=== PATIENT | male | born 1995 | race Caucasian/White ===

== ENCOUNTER 2023-02-24 16:49 | Emergency (ER) | payer OTHER ==
[2023-02-24 17:02] VITALS: BP 130/97
[2023-02-24 17:12] LABS: BASOPHILS % (AUTO) 0.3 %; HCT - HEMATOCRIT 45.3 % (42.0-52.0); HGB - HEMOGLOBIN 14.7 g/dL (14.0-18.0); LYMPHOCYTES # (AUTO) 1.2 10^3/uL (1.5-3.5); LYMPHOCYTES % (AUTO) 10.2 %; MEAN CORPUSCULAR HEMOGLOBIN 26.6 pg (27.0-31.0); MEAN CORPUSCULAR HGB CONC 32.5 g/dL (32.0-36.0); MEAN CORPUSCULAR VOLUME 81.9 fL (80.0-94.0); MEAN PLATELET VOLUME 8.8 fL (7.4-11.4); MONOCYTES # (AUTO) 0.7 10^3/uL (0.0-1.0); MONOCYTES % (AUTO) 6.5 %; NEUTROPHILS # (AUTO) 9.4 10^3/uL (1.5-6.6); NEUTROPHILS % (AUTO) 82.7 %; PLT - PLATELET COUNT 229 10^3/uL (130-450); RED BLOOD COUNT 5.53 10^6/uL (4.70-6.10); WHITE BLOOD COUNT 11.3 x10^3/uL (4.8-10.8)
[2023-02-24 17:26] LABS: ALBUMIN 4.4 g/dL (3.2-5.5); ALBUMIN/GLOBULIN RATIO 1.3 (1.0-2.2); BILIRUBIN,TOTAL 0.9 mg/dL (0.2-1.0); CALCIUM 9.5 mg/dL (8.5-10.3); POTASSIUM 3.7 mmol/L (3.5-5.0); TOTAL PROTEIN 7.9 g/dL (6.7-8.2)
[2023-02-24] MEDS ORDERED: SODIUM CHLORIDE 0.9% 1,000 ML IV STA (17:45)
[2023-02-24] MEDS ORDERED: HYDROmorphone 1 MG/ML CARPUJECT IVP STA (17:45)
[2023-02-24] MEDS ORDERED: KETOROLAC 15 MG/ML VIAL IVP STA (17:45)
--- NOTE | 2023-02-24 17:46 | ED Physician Documentation ---
PD HPI ABD PAIN - Stated complaint Stated Complaint: MADRIGAL/DIZZY/CRAMPING - Chief complaint Chief Complaint: Abd Pain - History obtained from History obtained from: Patient - Additional information Additional information: 27-year-old gentleman with history of remote appendectomy has been sick for 3 days with abdominal cramping but last night started develop profuse diarrhea and a fever of 103. No associated nausea. No sick contacts or recent travel. PD PAST MEDICAL HISTORY - Allergies Allergies/Adverse Reactions: Allergies Allergy/AdvReac Type Severity Reaction Status Date / Time No Known Drug Allergies Allergy Verified 02/24/23 17:02 PD ED PE NORMAL - Vitals Vital signs reviewed: Yes - General General: Alert and oriented X 3, No acute distress - Cardiac Cardiac: RRR, No murmur - Abdomen Abdomen: Normal bowel sounds, Soft, Non tender - Back Back: No spinal TTP - Derm Derm: No rash - Neuro Neuro: Alert and oriented X 3, Normal speech Results - Vitals Vitals: Vital Signs - 24 hr 02/24/23 02/24/23 16:58 18:07 Temperature 36.9 C Heart Rate 111 H 108 H Respiratory 16 Rate Blood Pressure 130/97 H O2 Saturation 97 95 Oxygen O2 Source Room air - Labs Labs: Laboratory Tests 02/24/23 02/24/23 02/24/23 17:08 17:08 17:55 WBC 11.3 H RBC 5.53 Hgb 14.7 Hct 45.3 MCV 81.9 MCH 26.6 L MCHC 32.5 RDW 13.0 Plt Count 229 MPV 8.8 Neut # (Auto) 9.4 H Lymph # (Auto) 1.2 L [place] # (Auto) 0.7 Eos # (Auto) 0.0 Baso # (Auto) 0.0 Absolute Nucleated RBC 0.00 Nucleated RBC % 0.0 Sodium 136 Potassium 3.7 Chloride 101 Carbon Dioxide 26 Anion Gap 9.0 BUN 12 Creatinine 1.0 Estimated GFR (MDRD) 89 Glucose 102 H Calcium 9.5 Total Bilirubin 0.9 AST 18 ALT 28 Alkaline Phosphatase 58 Total Protein 7.9 Albumin 4.4 Globulin 3.5 Albumin/Globulin Ratio 1.3 Lipase 31 Urine Color YELLOW Urine Clarity CLEAR Urine pH 6.0 Ur Specific [place] >=1.030 H Urine Protein TRACE Urine Glucose (UA) NEGATIVE Urine Ketones 15 H Urine Occult Blood NEGATIVE Urine Nitrite NEGATIVE Urine Bilirubin NEGATIVE Urine Urobilinogen 0.2 (NORMAL) Ur Leukocyte Esterase NEGATIVE Ur Microscopic Review NOT INDICATED Urine Culture Comments NOT INDICATED PD Medical Decision Making - ED course ED course: 27-year-old gentleman with what sounds like a colitis. CBC reviewed notable for mild elevation white count. CMP basically normal. Urine normal with exception of concentrated with mild ketonuria. Signed out to overnight ED physician at 7 PM shift change pending CT and stool results.
[2023-02-24 18:13] LABS: BILIRUBIN,URINE NEGATIVE (NEGATIVE); GLUCOSE, URINE (UA) NEGATIVE (NEGATIVE); KETONES,URINE (UA) 15 mg/dL (NEGATIVE); LEUKOCYTE ESTERASE, URINE NEGATIVE (NEGATIVE); NITRITE,URINE NEGATIVE (NEGATIVE); OCCULT BLOOD,URINE NEGATIVE (NEGATIVE); PROTEIN,URINE TRACE mg/dL (NEGATIVE); UROBILINOGEN,URINE 0.2 (NORMAL) E.U./dL (NORMAL)
[2023-02-24 18:26] LABS: CLARITY,URINE CLEAR (CLEAR)
[2023-02-24] MEDS ORDERED: iohexoL-300 100 ML VIAL ONE (18:58)
--- NOTE | 2023-02-24 19:36 | CT Report ---
PROCEDURE: ABDOMEN/PELVIS W INDICATIONS: iv only, abd pain CONTRAST: : 100mL Omni 300 TECHNIQUE: After the administration of IV contrast, 5 mm thick sections acquired from the diaphragms to the symp hysis. 5 mm thick coronal and sagittal reformats were acquired. For radiation dose reduction, the f ollowing was used: automated exposure control, adjustment of mA and/or kV according to patient size. COMPARISON: FINDINGS: Image quality: Excellent. Lung bases and heart: Unremarkable. Liver: Mild steatosis. Gallbladder and biliary tree: Unremarkable. Spleen: Unremarkable. Pancreas: Unremarkable. Adrenals: Unremarkable. Kidneys: No obstruction. Simple right renal cyst is present. Bowel and peritoneum: No bowel distension. Bowel loops are nonobstructive. There is thickening of the descending and transverse colon into lesser degree the descending and sigmoid colon. Minimal surroun ding pericolonic inflammatory changes are present. There are right lower quadrant subcentimeter lymph nodes present. Lymph nodes: No central or retroperitoneal adenopathy. Vessels: Unremarkable. PELVIS Reproductive organs: Unremarkable. Bladder and ureters: Unremarkable. Lymph nodes: Unremarkable. Bones: No aggressive osseous abnormality. Other: None IMPRESSION: Diffuse thickening with inflammatory change within the colon most severe within the right and transve rse colon. Overall appearance is most suggestive of colitis secondary to infection or inflammatory ch mazin. Given patient age and lack of atherosclerotic disease, ischemic colitis is felt to be less like ly. Reviewed by: Angelina Driscoll MD on 02/24/2023 7:34 PM PDT Approved by: Angelina Driscoll MD on 02/24/2023 7:34 PM PDT Station ID: [id number]
[2023-02-24] MEDS ORDERED: iohexoL-300 100 ML VIAL IVP ONE (19:46)
--- NOTE | 2023-02-24 19:47 | ED Physician Documentation ---
ED Addendum - Addendum Addendum: 02/24/23 19:55 Patient signed out to me by Dr. Salguero at shift change pending results of CT scan of the abdomen and pelvis. His CT results are as follows. IMPRESSION: Diffuse thickening with inflammatory change within the colon most severe within the right and transverse colon. Overall appearance is most suggestive of colitis secondary to infection or inflammatory change. Given patient age and lack of atherosclerotic disease, ischemic colitis is felt to be less likely. C. difficile PCR is negative. Stool culture is pending. Patient continues to report having frequent loose stools. I discussed options for treatment and patient is agreeable to trial of antibiotics given fever and frequent stools. Pt is otherwise well appearing, denies vomiting and appears appropriate for outpatient management. He was advised on concerning symptoms to return for. Departure - Departure Disposition: 01 Home, Self Care Clinical Impression: Colitis Condition: Stable Instructions: ED Diarrhea Bacterial Prescriptions: Ciprofloxacin HCl [Cipro] 500 mg PO BID 4 Days #8 tablet Comments: Your CT scan shows inflammation in your colon which could be from an infection. Your Cdiff test is negative. There are other bacteria that can cause such an infection and your stool culture is pending. Because of your fever and number of loose stools, we have decided to trial you on A short course of antibiotics. I have sent this prescription to [facility] in [place]. Please make sure you are staying hydrated. If your stool culture comes back with a result That requires a different antibiotic we will notify you and call that in. Please return to the emergency department with any worsening symptoms such as increased pain, weakness. Forms: Activity restrictions
[2023-02-24] MEDS ORDERED: CIPROFLOXACIN 250 MG TABLET PO STA (19:54)
== END 2023-02-24 20:29 | disposition home or self-care (01) ==
LOC: ED 16:49
DX: K52.9 Noninfective gastroenteritis and colitis, unspecified (principal)
CPT/HCPCS: 36415; 74177; 80053; 81003; 83690; 85025; 87045; 87046; 87427; 87493; 96374; 99284; A9270; J1170; Q9967; 81001; 87077; 87086

== ENCOUNTER 2023-03-26 10:42 | Outpatient (CLI) | payer OTHER ==
--- NOTE | 2023-03-26 11:28 | SLEEP CARE CONSULTATION ---
Information from patient questionnaire entered by Josh Garza. I have reviewed and concur with the information entered by Josh Garza. This document represents the service I personally performed and the decisions made by me, Lima De Los Santos ARNP. History of Present Illness Service Date and Time: 03/26/2023 1042 Reason for Visit: New patient Chief Complaint: reports: Snoring, Excessive daytime sleepiness, Observed pauses in breathing, Frequent awakenings at night Date of Onset: 5YRS Usual bedtime: 9PM Time it takes to fall asleep: 5-10MINS Snores at night: Yes Observed to quit breathing while asleep: Yes Sleeps alone due to snoring: No Number of times waking at night: 1-3 Reasons for waking at night: reports: Snoring, Other (UNKNOWN). denies: Choking, Gasping for air Toss, Turn, or Twitch while sleeping: Yes Recalls having dreams: Yes Usually gets out of bed at: 0530; weekends 0700 sometimes Feels refreshed in the morning: No Morning headache: No Sleepy or fatigued during the day: Yes Ever fallen asleep while driving: Yes (drowsy driving, no accidents) Takes day naps: No Dreams during day naps: Yes Prior sleep studies: No Additional HPI information: I had the pleasure of seeing DILEEP VILLEDA today regarding the possibility of him having a sleep disorder. His current complaints are excessive daytime sleepiness, frequent night awakenings, observed pauses in breathing and snoring. He states he has in general tiredness during the day. He cannot drive over an hour or he gets very drowsy. His is telling him he snores very loudly during the night and will also stops breathing when sleeping. She has also heard him gasping in his sleep when waking up, but he does not recall these incidents. He recently got a smart watch that tells him he is waking up frequently. He wakes up exhausted despite getting enough hours of sleep. He avoids laying down during the day because he will fall asleep immediately. 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 Patient is and lives in . Have you smoked in the past 12 months: No Alcohol use: Yes Alcohol amount and frequency: 2-3 EVERY COUPLE MONTHS Caffeine use: Yes Caffeine amount and frequency: 1 EVERY OTHER DAY Family History Family history of sleep disordered breathing: No Allergies and Home Medications Known drug allergies: No Drug allergies reviewed: Yes Home medication list reviewed: Yes (no daily medications) Allergy and home medication list: Allergies No Known Drug Allergies Allergy (Verified 03/25/23 14:08) Review of Systems Weight gain over past 5 years: 40-50 lbs, fluctuates up and down with deployment Cardiovascular: denies: high blood pressure Respiratory: denies: shortness of breath Gastrointestinal: denies: heartburn Neurological: denies: headaches Psychiatric: denies: anxiety, depression Ear/Nose/Throat: denies: tonsillectomy Endocrine: denies: thyroid disease Physical Exam Vital signs obtained and entered by: JOSH Good MA Blood Pressure: 144/80 (LEFT ARM) Cuff size: regular Heart Rate: 88 O2 Saturation: 97 Height: 5 ft 8 in Weight: 213 lb 9.6 oz Body Mass Index: 32.4 BMI Classification: Obese Neck circumference: 16.5 Mouth and throat: narrow oropharynx Soft palate: long Hard palate: normal Uvula: normal Uvula visualization: 25% Mallampati Class III Tonsils: 1+ Chin and jaw: normal size and position Neck: normal w/o lymphadenopathy or thyromegaly Heart: regular rate and rhythm Lungs: clear bilaterally Impression and Plan 1. Suspected Obstructive Sleep Apnea-Hypopnea Syndrome, as suggested by a history of loud and irregular snoring, observed cessation of breath while asleep, gasping or choking in sleep, frequent awakening during the night, unrefreshed sleep, and excessive daytime sleepiness. Narrow oropharynx and obesity are common predisposing factors for obstructive sleep apnea-hypopnea syndrome. I recommend proceeding to polysomnography to confirm the diagnosis and to assess severity. If the patient has significant sleep disordered breathing, a manual CPAP titration study will also be performed to find the optimal treatment pressure. I informed the patient of what the sleep studies involve and after some discussion, obtained agreement to proceed. The pathophysiology of obstructive sleep apnea-hypopnea syndrome was discussed with the patient and health risks of cardiovascular and cerebrovascular disease if not treated. Risks of drowsy driving discussed in detail and patient advised to avoid long distance driving and to extract puller at the first sign of drowsiness. Patient agreed to plan. * Schedule polysomnography +- manual CPAP titration study and return in 1-2 weeks after the study to discuss result and initiate therapy. * Avoid long distance driving or driving when feeling sleepy. * Avoid alcohol, sedative and muscle relaxant around bedtime. * Attempt to lose weight. * Review instructions provided by trained office staff on how to prepare for the sleep study. * Return for follow-up after sleep study completed. Counseling Topics: Weight loss health impact Visit Type: In Office Time Spent with Patient (minutes): 30 Provider Statement: I spent 100% of the Face to Face Visit with the patient with greater than 50% spent counseling the patient and coordination of care.
[2023-03-26 11:30] VITALS: BP 144/80
== END 2023-03-26 10:43 | disposition home or self-care (01) ==
LOC: SC 10:42
PROVIDERS: ATTEND Nurse Practitioner Family
DX: R06.83 Snoring (principal); G47.8 Other sleep disorders; R06.81 Apnea, not elsewhere classified; G47.10 Hypersomnia, unspecified; R53.83 Other fatigue; E66.9 Obesity, unspecified; Z68.32 Body mass index [BMI] 32.0-32.9, adult
CPT/HCPCS: 99203; 99212

== ENCOUNTER 2023-03-27 03:14 | Emergency (ER) | payer OTHER ==
--- NOTE | 2023-03-27 04:08 | ED Physician Documentation ---
PD HPI MALE - Stated complaint Stated Complaint: R TESTICLE, ABD PAIN - Chief complaint Chief Complaint: General - History obtained from History obtained from: Patient - History of Present Illness Associated symptoms: Testiclar pain. No: Dysuria, Urinary frequency, Hematuria, Discharge, Genital sore / lesion, Scrotal swelling - Additional information Additional information: HPI from patient. Patient complains of sudden onset of right testicular pain that radiates to the right lower quadrant of his abdomen. Patient was asleep, was asymptomatic all day, but woke up at 1:30 AM today with this pain. There were no exacerbating or ameliorating factors. The denies injury, denies history of similar symptoms. He says the pain was severe but that approximately 10 minutes before I came into the room to evaluate the patient, the pain had suddenly resolved completely. Review of Systems Constitutional: denies: Fever GI: denies: Nausea, Vomiting PD PAST MEDICAL HISTORY - Past Medical History Past Medical History: No - Past Surgical History Past Surgical History: No - Present Medications Home Medications: Ambulatory Orders Medication Instructions Recorded Confirmed No Known Home Medications 03/26/23 03/26/23 - Allergies Allergies/Adverse Reactions: Allergies Allergy/AdvReac Type Severity Reaction Status Date / Time No Known Drug Allergies Allergy Verified 03/27/23 03:42 - Living Situation Living Arrangement: reports: At home PD ED PE NORMAL - Vitals Vital signs reviewed: Yes - General General: Alert and oriented X 3, No acute distress, Well developed/nourished - Abdomen Abdomen: Soft, Non tender PD ED PE EXPANDED - Male Male : Normal Exam, Testes descended aime, Normal lie/cremastaric. No: Tenderness Results - Vitals Vitals: Vital Signs - 24 hr 03/27/23 03/27/23 03/27/23 03:36 04:59 06:00 Temperature 36.4 C L Heart Rate 72 77 70 Respiratory 19 16 16 Rate Blood Pressure 181/110 H 146/86 H 147/96 H O2 Saturation 100 98 99 03/27/23 08:14 Temperature Heart Rate 80 Respiratory 18 Rate Blood Pressure 161/84 H O2 Saturation 100 Oxygen O2 Source Room air - Labs Labs: Laboratory Tests 03/27/23 03/27/23 08:40 08:40 WBC 8.9 RBC 5.27 Hgb 14.3 Hct 44.4 MCV 84.3 MCH 27.1 MCHC 32.2 RDW 13.2 Plt Count 283 MPV 9.0 Neut # (Auto) 7.4 H Lymph # (Auto) 1.1 L [place] # (Auto) 0.3 Eos # (Auto) 0.1 Baso # (Auto) 0.0 Absolute Nucleated RBC 0.00 Nucleated RBC % 0.0 Sodium 137 Potassium 4.1 Chloride 102 Carbon Dioxide 27 Anion Gap 8.0 BUN 12 Creatinine 0.9 Estimated GFR (MDRD) 100 Glucose 118 H Calcium 9.3 PD Medical Decision Making - ED course Complexity details: re-evaluated patient, considered differential, d/w patient ED course: Patient presents with sudden onset of severe right testicular pain that began at 1:30 AM this morning but resolved just prior to my evaluation. Initial exam is unremarkable. Ultrasound will not be available at [facility] until 9 AM. I recommended to patient that the stay in the emergency department until an ultrasound to be obtained, the purpose of which would be twofold: The ultrasound can help rule out emergent pathology/etiology and the waiting time will allow for adequate and appropriate observation for recurrence of symptoms. I reevaluated the patient at 7:30 AM, and patient says his pain is starting to return and is now a 4 out of 10. I reexamined the patient. His abdomen remains entirely nontender, there is no evidence of hernia. However, the right testicle now is high riding in the scrotum and, by palpation, has a horizontal lie. There is no overt swelling of the hemiscrotum and the testicle is nontender to palpation. I attempted a detorsion maneuver (outward rotation of the testicle). This did not seem to have any effect on his pain (neither better nor worse). However, before I left the room, the patient complained of rapidly increasing pain and was visibly in painful distress. We discussed options for pain control and I ordered 1 mg Dilaudid IM. He continued to have moderate to severe right testicular pain. At this point, testicular torsion is an increasing likelihood. Along these lines, the delay until the ultrasound is available combined with the inability to act on the potential for a positive result for torsion (there is no urologist available at [facility]), I recommended transfer to appropriate facility to patient and he agrees with this. I contacted the on-duty emergency department physician at [facility] in [place]; unfortunately, they do not have urology on-call today. I then contacted the emergency department physician at [facility], and he accepts patient for transfer to their facility. Departure - Departure Disposition: 02 Transfer Acute Care Hosp Clinical Impression: Testicular pain, right Condition: Good
[2023-03-27] MEDS ORDERED: HYDROmorphone 1 MG/ML CARPUJECT IM STA (07:48)
[2023-03-27 08:14] VITALS: BP 161/84
[2023-03-27 08:52] LABS: BASOPHILS % (AUTO) 0.3 %; EOSINOPHILS # (AUTO) 0.1 10^3/uL (0.0-0.7); EOSINOPHILS % (AUTO) 0.6 %; HCT - HEMATOCRIT 44.4 % (42.0-52.0); HGB - HEMOGLOBIN 14.3 g/dL (14.0-18.0); LYMPHOCYTES # (AUTO) 1.1 10^3/uL (1.5-3.5); MEAN CORPUSCULAR HEMOGLOBIN 27.1 pg (27.0-31.0); MEAN CORPUSCULAR HGB CONC 32.2 g/dL (32.0-36.0); MEAN CORPUSCULAR VOLUME 84.3 fL (80.0-94.0); MONOCYTES # (AUTO) 0.3 10^3/uL (0.0-1.0); MONOCYTES % (AUTO) 3.6 %; NEUTROPHILS # (AUTO) 7.4 10^3/uL (1.5-6.6); PLT - PLATELET COUNT 283 10^3/uL (130-450); RED BLOOD COUNT 5.27 10^6/uL (4.70-6.10); RED CELL DISTRIBUTION WIDTH 13.2 % (12.0-15.0); WHITE BLOOD COUNT 8.9 x10^3/uL (4.8-10.8)
[2023-03-27 08:59] LABS: BILIRUBIN,URINE NEGATIVE (NEGATIVE); GLUCOSE, URINE (UA) NEGATIVE (NEGATIVE); KETONES,URINE (UA) NEGATIVE (NEGATIVE); LEUKOCYTE ESTERASE, URINE NEGATIVE (NEGATIVE); NITRITE,URINE NEGATIVE (NEGATIVE); OCCULT BLOOD,URINE SMALL (NEGATIVE); PROTEIN,URINE NEGATIVE (NEGATIVE); UROBILINOGEN,URINE 0.2 (NORMAL) E.U./dL (NORMAL)
[2023-03-27 09:06] LABS: CALCIUM 9.3 mg/dL (8.5-10.3); CREATININE 0.9 mg/dL (0.6-1.2); POTASSIUM 4.1 mmol/L (3.5-5.0)
[2023-03-27 09:16] LABS: CLARITY,URINE CLEAR (CLEAR)
[2023-03-27 09:17] LABS: BACTERIA,URINE None Seen /HPF (None Seen); RBC,URINE 0-5 /HPF (0-5); SQUAMOUS EPITHELIAL CELL,UR NONE SEEN (<= Few)
== END 2023-03-27 09:00 | disposition short-term general hospital (02) ==
LOC: ED 03:14
DX: N50.811 Right testicular pain (principal)
CPT/HCPCS: 36415; 80048; 81001; 85025; 96374; 99283; 99285; J1170; 81003; 87086

== ENCOUNTER 2023-03-27 09:02 | Outpatient (CLI) | payer OTHER | END 2023-03-27 23:59 | disposition short-term general hospital (02) | LOC: EMS 09:02 | PROVIDERS: ATTEND Emergency Medicine | DX: N50.811 Right testicular pain (principal); R10.31 Right lower quadrant pain | CPT/HCPCS: A0425; A0426 ==

== ENCOUNTER 2023-04-29 19:17 | Outpatient (CLI) | payer OTHER | END 2023-04-29 19:18 | disposition home or self-care (01) | LOC: SC 19:17 | PROVIDERS: ATTEND Nurse Practitioner Family | DX: G47.33 Obstructive sleep apnea (adult) (pediatric) (principal) | CPT/HCPCS: 95810 ==

== ENCOUNTER 2023-05-25 08:24 | Outpatient (CLI) | payer OTHER ==
--- NOTE | 2023-05-25 08:50 | Sleep Patient Instructions ---
Sleep Center Visit Summary - Patient Visit Information Reason for Visit: Sleep study followup - Patient Instructions Instructions Attached: CPAP, CPAP Dc Additional Instructions: You are being started on CPAP therapy with pressure setting at 4-15 cmH2O. You will need to call the sleep care office to set up your follow up once you have your APAP machine and we will schedule a visit to check compliance and response to therapy at that time. You may call the office with any concerns about pressure feeling too low or too much for adjustment, if needed. You should contact DME for any questions or concerns about mask or equipment. Please follow up in the sleep care office one month after obtaining new device. - Clinic Information Contact: [facility] [address] [place] [address] [email or web address] T: [phone]
--- NOTE | 2023-05-25 08:54 | SLEEP CARE CONSULTATION ---
Information from patient questionnaire entered by Lizzie Garza. I have reviewed and concur with the information entered by Lizzie Garza. This document represents the service I personally performed and the decisions made by , Lima De Los Santos ARNP. History of Present Illness Service Date and Time: 05/25/2023823 Initial [place] Sleepiness Scale score: 12 (03/26/23) Current [place] Sleepiness Scale score: 16 (05/25/23) Additional HPI information: DILEEP VILLEDA returns for follow up and results of the recently performed polysomnography. Patient's sleep study showed moderate obstructive sleep apnea with an average AHI of 20.4 and rebekah oxygen saturation of 79%. I explained the pathophysiology behind obstructive sleep apnea. We then spent quite a bit of time discussing different treatment options. For mild obstructive sleep apnea, surgery and oral appliance are alternatives to nasal CPAP therapy but in moderate or severe cases, nasal CPAP is the most effective and reliable treatment. I reviewed the impact of weight changes on sleep apnea and strongly recommended losing weight. After some discussion, the patient opted to go with the nasal CPAP therapy. Nasal autoCPAP set at 4-15 cmH20 will be ordered with rationale explained. A manual titration study will be ordered if unable to find optimal pressure with office adjustments. I explained how CPAP machine works and what to expect when using the machine. Using CPAP every night in order to get used to it was emphasized. Patient advised to put CPAP mask on before getting into bed so as not to fall asleep without CPAP. To assist acclimation to CPAP use, it could also be used for a short time during day while reading or watching TV. The patient was instructed to call the CPAP supplier to discuss any mechanical problem that may occur. If the mask given is uncomfortable or is difficult to keep on through the night even with adjustment, contact the CPAP supplier as many will replace with another mask style if notified before 30 days. If snoring or perceives is not getting enough air or too much air from the machine, notify this office. Patient counseled not drink alcohol less than 4 hours before bedtime as it can increase snoring and apnea. Patient was cautioned about risks of drowsy driving until sleepiness symptoms resolve. Sleep Study - Results Type of Sleep Study: Polysomnography (COMPLETED 04/29/23) Prior sleep studies: No Polysomnography/Home Sleep Study results: IMPRESSION: The quality of the study is good. The patient had normal sleep efficiency. The sleep architecture was abnormal for sleep fragmentation and reduced amount of time spent in slow wave sleep (N3). Respiratory monitoring showed moderate obstructive sleep apnea-hypopnea (AHI = 20.4) associated with frequent arousals, oxyhemoglobin desaturation and moderate hypoxia (rebekah oxygen saturation of 79%) . The respiratory events occurred independently of sleep stage and body position (supine AHI = 20.0; non- supine = 52.63). Snore was loud in intensity. There was no significant periodic leg movement of sleep. Cardiac rhythm was normal sinus rhythm without significant arrhythmia. No abnormal behavior (parasomnia) observed during the night. Allergies and Home Medications Known drug allergies: No Drug allergies reviewed: Yes Home medication list reviewed: Yes (no changes) Allergy and home medication list: Allergies No Known Drug Allergies Allergy (Verified 05/24/23 15:02) Review of Systems Review of systems same as previous: Yes (no changes) Physical Exam Vital signs obtained and entered by: LIZZIE Good MA Blood Pressure: 120/74 (LEFT ARM) Cuff size: long Heart Rate: 74 O2 Saturation: 99 Height: 5 ft 8 in Weight: 215 lb 12.8 oz Body Mass Index: 32.8 BMI Classification: Obese Impression and Plan 1. Obstructive Sleep Apnea-Hypopnea Syndrome, moderate, with lowest oxygen saturation of 79%. Obviously this is the cause of the patients symptoms of unrefreshed sleep, and excessive daytime sleepiness. As mentioned above, the patient will be started on nasal autoCPAP therapy with pressure set at 4-15 cmH2 O. A manual titration study will be completed if unable to find optimal treatment pressure with office adjustments. Compliance guidelines also reviewed. A copy of compliance guidelines will be given for reference at check out. 2. Hypoxemia, moderate, with a rebekah oxygen saturation of 79% and 7.1 minutes spent under 90%. His baseline oxygen saturation was normal with an average oxygen saturation of 95%. * Nasal auto CPAP therapy, pressure at 4-15 cm H2O. * Attempt to lose weight. * Avoid alcohol consumption near bedtime. * Avoid supine sleep until using CPAP. * The patient is again cautioned about driving until sleepiness completely resolves. * Return one month after CPAP obtained. I will assess response to therapy and compliance at that time. Counseling Topics: Weight loss health impact Prescriptions: Auto CPAP Visit Type: In Office Time Spent with Patient (minutes): 21 Provider Statement: I spent 100% of the Face to Face Visit with the patient with greater than 50% spent counseling the patient and coordination of care.
[2023-05-25 08:58] VITALS: BP 120/74
== END 2023-05-25 08:25 | disposition home or self-care (01) ==
LOC: SC 08:24
PROVIDERS: ATTEND Nurse Practitioner Family
DX: G47.33 Obstructive sleep apnea (adult) (pediatric) (principal)
CPT/HCPCS: 99212; 99213

== ENCOUNTER 2023-06-01 17:35 | Emergency (ER) | payer OTHER ==
[2023-06-01 17:43] VITALS: BP 145/84
--- NOTE | 2023-06-01 17:51 | ED Physician Documentation ---
History of Present Illness - Stated complaint Stated Complaint: LT ARM RASH - Chief complaint Chief Complaint: General - History obtained from History obtained from: Patient - Additonal information Additional information: Itchy redness warmth to the elbow. Thinks he may have a bug bite. Started yesterday. No fever. Not painful. PD PAST MEDICAL HISTORY - Past Medical History Cardiovascular: None Respiratory: None Neuro: None Endocrine/Autoimmune: None GI: None : None HEENT: None Psych: None Musculoskeletal: None Derm: None - Past Surgical History Past Surgical History: Yes General: Appendectomy - Present Medications Home Medications: Ambulatory Orders Medication Instructions Recorded Confirmed No Known Home Medications 03/26/23 06/01/23 - Allergies Allergies/Adverse Reactions: Allergies Allergy/AdvReac Type Severity Reaction Status Date / Time No Known Drug Allergies Allergy Verified 06/01/23 17:39 - Social History Does the pt smoke?: No Smoking Status: Never smoker Does the pt drink ETOH?: Yes Does the pt have substance abuse?: No - Immunizations Immunizations are current?: Yes PD ED PE NORMAL - Vitals Vital signs reviewed: Yes - General General: Alert and oriented X 3, No acute distress - Extremities Extremities: Other (Medial to the olecranon on the posterior medial left elbow there is a patch of warmth and redness consistent with mosquito bite. It is not as brawny red as cellulitis would be. No limited range of motion of the elbow. No tenderness over the olecranon bursa.) - Neuro Neuro: Alert and oriented X 3, Normal speech - Psych Psych: Normal mood, Normal affect Results - Vitals Vitals: Vital Signs - 24 hr 06/01/23 17:39 Temperature 36.7 C Heart Rate 85 Respiratory 16 Rate Blood Pressure 145/84 H O2 Saturation 97 Oxygen O2 Source Room air PD Medical Decision Making - ED course ED course: 28-year-old gentleman with what appears to be a noninfected but inflamed mosq uito bite to the left elbow. There are no clinical findings to suggest cellulitis. Watchful waiting was advised and perhaps some topical hydrocortisone. Departure - Departure Disposition: 01 Home, Self Care Clinical Impression: Mosquito bite Qualifiers: Encounter type: initial encounter Qualified Code(s): W57.XXXA - Bitten or stung by nonvenomous insect and other nonvenomous arthropods, initial encounter Condition: Good Record reviewed to determine appropriate education?: Yes Instructions: ED Bite Mosquito Comments: Hydrocortisone ointment topically, return if becomes painful, limited range of motion of the elbow, or if you run a fever. Discharge Date/Time: 06/01/23 17:53
== END 2023-06-01 17:53 | disposition home or self-care (01) ==
LOC: ED 17:35
DX: S51.052A Open bite, left elbow, initial encounter (principal); W57.XXXA Bitten or stung by nonvenomous insect and other nonvenomous arthropods, initial encounter
CPT/HCPCS: 99281; 99282

== ENCOUNTER 2023-07-27 08:24 | Outpatient (CLI) | payer OTHER ==
--- NOTE | 2023-07-27 09:00 | SLEEP CARE CONSULTATION ---
Information from patient questionnaire entered by Josh Garza. I have reviewed and concur with the information entered by Josh Garza. This document represents the service I personally performed and the decisions made by me, Lima De Los Santos ARNP. History of Present Illness Service Date and Time: 07/27/2023 08 Previous diagnosis: Moderate, Obstructive Sleep Apnea-Hypopnea Syndrome AHI: 20.4 (04/2023) Reason for follow up: first compliance Equipment type: CPAP (RESMED 11, s/u 05/2023) Equipment obtained from: Other ([facility]; got initial supplies) Mask style: Nasal ([place]) Backup mask available: No (will keep old mask when replaced) Last cushion change: 1 week Prior sleep studies: No Type of Sleep Study: Polysomnography (COMPLETED 04/29/23) HPI additional information: DILEEP VILLEDA was diagnosed to have moderate, AHI 20.4, obstructive sleep apnea-hypopnea syndrome and returned today for CPAP therapy first compliance follow-up. Sleep Study - Results Type of Sleep Study: Polysomnography (COMPLETED 04/29/23) Prior sleep studies: No CPAP Compliance Data - Data Reviewed with Patient Average duration of nightly device use: 7 HRS 6 MINS Compliance rate %: 93 (06/26/23-07/25/23; days used) Current pressure setting (cmH2O): 4-15 (median 6.2, avg 9.2, max 10.7) Average residual AHI: 2.3 Central apnea: 0.1 Obstructive apnea: 2.1 Average large leak: 1.9 L/min Subjective Missed days of use due to: reports: illness (nasal congestion, unable to breathe through nose) Patient concerns: reports: condensation in mask/hose (turned down the humidity to 1-2), nasal congestion, dry mouth, nose, throat (throat, not really dry), other (cough for over a month, improving). denies: aerophagia, mask discomfort, air blowing in eyes, mask leak noise, epistaxis Observed to snore while using device: No Current pressure setting perceived as: comfortable On therapy, patient: reports: other (waking up a lot at night) Initial [place] Sleepiness Scale score: 12 (03/26/23) Current [place] Sleepiness Scale score: 14 (07/27/23) Allergies and Home Medications Known drug allergies: No Drug allergies reviewed: Yes Home medication list reviewed: Yes (no changes) Allergy and home medication list: Allergies No Known Drug Allergies Allergy (Verified 07/26/23 09:22) Review of Systems Review of systems same as previous: Yes (no changes) Physical Exam Vital signs obtained and entered by: JOSH Good MA Blood Pressure: 122/70 (LEFT ARM) Cuff size: regular Heart Rate: 77 O2 Saturation: 98 Height: 5 ft 8 in Weight: 213 lb 9.6 oz Body Mass Index: 32.4 BMI Classification: Obese Impression and Plan 1. Obstructive Sleep Apnea-Hypopnea Syndrome, moderate, with good treatment compliance and good apnea control. He is not really feeling benefit yet. He feels he is waking up more often and the hose on the mask is coming unconnected often. He states he is comfortable in mask but will try another style when eligible in a few months. He has had some condensation in the mask a couple of nights. He has also had a more runny nose and phlegmy cough. He states it is improving. He reduced his humidity and adjusted heated hose. He is not getting more condensation in mask. The patients pressure will be changed to autoCPAP 8-11 cmH20 to reflect pressure being used. Patient advised to contact me if pressure change is uncomfortable so that it can be adjusted. Goals for apnea control discussed. Patient's apnea severity and rationale for treatment to reduce apnea, improve sleep quality and reduce cardiovascular and cerebrovascular events was reviewed. 2. Obesity, unspecified. Currently patients BMI is 32.4. Obesity increases the risk of apnea, CPAP pressure requirements and overall health risks especially cardiovascular and diabetes. Thus patient is advised to lose weight. * Change auto CPAP pressure to 8-11 cmH2O * Notify me if snoring with mask or feeling that the pressure is too much or too little * Attempt to lose weight * Call this office if any problems using CPAP * Return for follow up in 1-2 months, or sooner if concerns arise Counseling Topics: Spare mask, Weight loss health impact Visit Type: In Office Time Spent with Patient (minutes): 22 Provider Statement: I spent 100% of the Face to Face Visit with the patient with greater than 50% spent counseling the patient and coordination of care.
[2023-07-27 09:06] VITALS: BP 122/70; O2SAT 98
== END 2023-07-27 08:25 | disposition home or self-care (01) ==
LOC: SC 08:24
PROVIDERS: ATTEND Nurse Practitioner Family
DX: G47.33 Obstructive sleep apnea (adult) (pediatric) (principal); E66.9 Obesity, unspecified; Z68.32 Body mass index [BMI] 32.0-32.9, adult
CPT/HCPCS: 99212; 99213

== ENCOUNTER 2023-09-07 08:46 | Outpatient (CLI) | payer OTHER ==
--- NOTE | 2023-09-07 09:05 | Sleep Patient Instructions ---
Sleep Center Visit Summary - Patient Visit Information Reason for Visit: 6 Week followup - Patient Instructions Additional Instructions: You were here for follow up of CPAP therapy. You will be continued on CPAP therapy with pressure at 8-11 cmH2O. I have written for a mask refitting. Reach out to [facility] if you do not hear from them about changing mask. You should follow up with sleep care in 3 months. You may contact us sooner for any questions or concerns. - Clinic Information Contact: [facility] [address] [place] [address] [email or web address] T: [phone]
--- NOTE | 2023-09-07 09:08 | SLEEP CARE CONSULTATION ---
Information from patient questionnaire entered by Lizzie Garza. I have reviewed and concur with the information entered by Lizzie Garza. This document represents the service I personally performed and the decisions made by , Lima De Los Santos ARNP. History of Present Illness Service Date and Time: 09/07/2023 0846 Previous diagnosis: Moderate, Obstructive Sleep Apnea-Hypopnea Syndrome AHI: 20.4 (in 04/2023) Reason for follow up: other (6 WEEK F/U) Equipment type: CPAP (RESMED 11; s/u 05/2023) Equipment obtained from: Other ([facility]; getting supplies) Mask style: Nasal (over the nose) Backup mask available: No Last cushion change: last week Prior sleep studies: No Type of Sleep Study: Polysomnography (COMPLETED 04/29/23) HPI additional information: DILEEP VILLEDA was diagnosed to have moderate, AHI 20.4, obstructive sleep apnea-hypopnea syndrome and returned today for CPAP therapy six week follow-up. Sleep Study - Results Type of Sleep Study: Polysomnography (COMPLETED 04/29/23) Prior sleep studies: No CPAP Compliance Data - Data Reviewed with Patient Average duration of nightly device use: 6 HRS 44 MINS Compliance rate %: 89 (-09/02/23; 42/44 days used) Current pressure setting (cmH2O): 8-11 Average residual AHI: 2.4 Central apnea: 0.1 Obstructive apnea: 2.1 Hypopnea: 0.1 Average large leak: 2 L/min Subjective Missed days of use due to: reports: other (on watch/work) Patient concerns: reports: mask discomfort, air blowing in eyes, mask leak noise. denies: aerophagia, condensation in mask/hose, nasal congestion, dry mouth, nose, throat, epistaxis Observed to snore while using device: No Current pressure setting perceived as: comfortable On therapy, patient: reports: other (still feeling tired during day and falling asleep when sedentary). denies: drowsiness while driving Initial [place] Sleepiness Scale score: 12 (03/26/23) Current [place] Sleepiness Scale score: 15 Allergies and Home Medications Known drug allergies: No Drug allergies reviewed: Yes Home medication list reviewed: Yes (Benzonate; Cetirizine--for cough) Allergy and home medication list: Allergies No Known Drug Allergies Allergy (Verified 09/06/23 09:49) Review of Systems Review of systems same as previous: Yes (no changes) Physical Exam Vital signs obtained and entered by: LIMA VIDAL Blood Pressure: 145/94 Cuff size: wrist (right) Heart Rate: 75 O2 Saturation: 98 Height: 5 ft 8 in Weight: 218 lb 9.6 oz Body Mass Index: 33.2 BMI Classification: Obese Impression and Plan 1. Obstructive Sleep Apnea-Hypopnea Syndrome, moderate, with good treatment compliance and good apnea control. He does not feel he is more rested because he continually wakes up due to mask dislodging and leaking into eyes/mask leak noise. He would like to try another mask. He is currently using a nasal cushion that covers his nose. We discussed possibly trying a nasal pillows mask. He likes this idea because he is a side sleeper. I will write for a mask refitting and follow-up with him in about 3 months. Patient's apnea severity and rationale for treatment to reduce apnea, improve sleep quality and reduce cardiovascular and cerebrovascular events was reviewed. 2. Obesity, unspecified. Currently patients BMI is 33.2. Obesity increases the risk of apnea, CPAP pressure requirements and overall health risks especially cardiovascular and diabetes. Thus patient is advised to lose weight. * Continue auto CPAP pressure at 8-11 cmH2O * Mask refitting * Notify me if snoring with mask or feeling that the pressure is too much or too little * Attempt to lose weight * Call this office if any problems using CPAP * Return for follow up in 3 months, or sooner if concerns arise Counseling Topics: Spare mask, Weight loss health impact Prescriptions: Other (mask refitting) Follow up with Sleep Care in: 3 months Visit Type: In Office Time Spent with Patient (minutes): 20 Provider Statement: I spent 100% of the Face to Face Visit with the patient with greater than 50% spent counseling the patient and coordination of care.
[2023-09-07 09:17] VITALS: BP 145/94; O2SAT 98
== END 2023-09-07 08:47 | disposition home or self-care (01) ==
LOC: SC 08:46
PROVIDERS: ATTEND Nurse Practitioner Family
DX: G47.33 Obstructive sleep apnea (adult) (pediatric) (principal); E66.9 Obesity, unspecified; Z68.33 Body mass index [BMI] 33.0-33.9, adult
CPT/HCPCS: 99212; 99213

== ENCOUNTER 2023-12-07 08:49 | Outpatient (CLI) | payer OTHER ==
--- NOTE | 2023-12-07 09:11 | Sleep Patient Instructions ---
Sleep Center Visit Summary - Patient Visit Information Reason for Visit: 3 month followup - Patient Instructions Additional Instructions: You were here for follow up of CPAP therapy. You will be continued on CPAP therapy with pressure at 8-11 cmH2O. You should follow up with sleep care in 6 months. You may contact us sooner for any questions or concerns. - Clinic Information Contact: [facility] [address] [place] [id number] [email or web address] T: [phone]
--- NOTE | 2023-12-07 09:17 | SLEEP CARE CONSULTATION ---
Information from patient questionnaire entered by Josh Garza. I have reviewed and concur with the information entered by Josh Garza. This document represents the service I personally performed and the decisions made by me, Lima De Los Santos ARNP. History of Present Illness Service Date and Time: 12/07/2023 0849 Previous diagnosis: Moderate, Obstructive Sleep Apnea-Hypopnea Syndrome AHI: 20.4 (04/2023) Reason for follow up: other (3 MONTH F/U) Equipment type: CPAP (RESMED 11, s/u 05/2023) Equipment obtained from: Other ([facility]; got initial supplies) Mask style: Nasal pillows Mask brand: Resmed (AirFit P30i, medium cushion) Backup mask available: Yes Last cushion change: 2 weeks Prior sleep studies: No Type of Sleep Study: Polysomnography (COMPLETED 04/29/23) HPI additional information: DILEEP VILLEDA was diagnosed to have moderate, AHI 20.4, obstructive sleep apnea-hypopnea syndrome and returned today for CPAP therapy three month follow- up. Sleep Study - Results Type of Sleep Study: Polysomnography (COMPLETED 04/29/23) Prior sleep studies: No CPAP Compliance Data - Data Reviewed with Patient Average duration of nightly device use: 6 HRS 35 MINS Compliance rate %: 89 (09/03/23-12/01/23; 86/90 days used) Current pressure setting (cmH2O): 8-11 Average residual AHI: 2.3 Central apnea: 0.1 Obstructive apnea: 2 Hypopnea: 0.1 Average large leak: 1.1 L/min Subjective Missed days of use due to: reports: other (Watch (work)) Patient concerns: reports: other (headaches, since switching to nasal pillows; occasional from tightening straps too much). denies: aerophagia, mask disc omfort, air blowing in eyes, mask leak noise, condensation in mask/hose, nasal congestion, dry mouth, nose, throat, epistaxis Observed to snore while using device: No Current pressure setting perceived as: comfortable On therapy, patient: reports: sleeping better, awakening more refreshed, being more awake and alert during the day, more rested overall, other (improved in last few weeks). denies: drowsiness while driving (improved) Initial [place] Sleepiness Scale score: 12 (03/26/23) Current [place] Sleepiness Scale score: 12 (12/07/23) Allergies and Home Medications Known drug allergies: No Drug allergies reviewed: Yes Home medication list reviewed: Yes (no changes) Allergy and home medication list: Allergies No Known Drug Allergies Allergy (Verified 12/02/23 16:18) Review of Systems Review of systems same as previous: Yes (NO CHANGE) Physical Exam Vital signs obtained and entered by: JOSH Good MA Blood Pressure: 159/98 (RIGHT ARM) Cuff size: regular Heart Rate: 90 O2 Saturation: 98 Height: 5 ft 8 in Weight: 225 lb Body Mass Index: 34.2 BMI Classification: Obese Impression and Plan 1. Obstructive Sleep Apnea-Hypopnea Syndrome, moderate, with good treatment compliance and good apnea control. On CPAP therapy, the patient has better sleep quality and is more rested overall. He does seem to feel there is an improvement of his sleep and daytime sleepiness but feels except in the last couple nights he is waking up more at night. Patient has significant improvement of their sleep apnea and is satisfied with current CPAP therapy. He has had occasional headaches but states they are improving and feels it is more from tightening the mass too much since changing to the nasal pillows mask he is currently using an AirFit P30i. Patient's apnea severity and rationale for treatment to reduce apnea, improve sleep quality and reduce cardiovascular and cerebrovascular events was reviewed. 2. Obesity, unspecified. Currently patients BMI is 34.2. Obesity increases the risk of apnea, CPAP pressure requirements and overall health risks especially cardiovascular and diabetes. Thus patient is advised to lose weight. * Continue auto CPAP pressure at 8-11 cmH2O * Notify me if snoring with mask or feeling that the pressure is too much or too little * Attempt to lose weight * Call this office if any problems using CPAP * Return for follow up in 6 months, or sooner if concerns arise Counseling Topics: Spare mask, Weight loss health impact Follow up with Sleep Care in: 6 months Visit Type: In Office Time Spent with Patient (minutes): 21 Provider Statement: I spent 100% of the Face to Face Visit with the patient with greater than 50% spent counseling the patient and coordination of care.
[2023-12-07 09:21] VITALS: BP 159/98; O2SAT 98
== END 2023-12-07 08:50 | disposition home or self-care (01) ==
LOC: SC 08:49
PROVIDERS: ATTEND Nurse Practitioner Family
DX: G47.33 Obstructive sleep apnea (adult) (pediatric) (principal); E66.9 Obesity, unspecified; Z68.34 Body mass index [BMI] 34.0-34.9, adult
CPT/HCPCS: 99212; 99213

== ENCOUNTER 2024-07-20 09:53 | Outpatient (CLI) | payer OTHER ==
--- NOTE | 2024-07-20 10:23 | Sleep Patient Instructions ---
Sleep Center Visit Summary - Patient Visit Information Reason for Visit: 7-month follow-up - Patient Instructions Additional Instructions: You were here for follow up of CPAP therapy. You will be continued on CPAP therapy with pressure at 8-11 cmH2O. You should follow up with sleep care in 12 months. You may contact us sooner for any questions or concerns. - Clinic Information Contact: [facility] [address] [place] [address] [email or web address] T: [phone]
--- NOTE | 2024-07-20 10:26 | SLEEP CARE CONSULTATION ---
Information from patient questionnaire entered by Josh Garza. I have reviewed and concur with the information entered by Josh Garza. This document represents the service I personally performed and the decisions made by , Lima De Los Santos ARNP. History of Present Illness Service Date and Time: 07/20/2024 0953 Previous diagnosis: Moderate, Obstructive Sleep Apnea-Hypopnea Syndrome AHI: 20.4 (04/2023) Reason for follow up: other (7 MONTH F/U) Equipment type: CPAP (RESMED 11, s/u 05/2023) Equipment obtained from: Other ([facility]; getting supplies) Mask style: Nasal pillows Mask brand: Resmed (AirFit P30i) Backup mask available: Yes Last cushion change: 2 days Prior sleep studies: No Type of Sleep Study: Polysomnography (COMPLETED 04/29/23) HPI additional information: DILEEP VILLEDA was diagnosed to have moderate, AHI 20.4, obstructive sleep apnea-hypopnea syndrome and returned today for CPAP therapy seven month follow- up. Sleep Study - Results Type of Sleep Study: Polysomnography (COMPLETED 04/29/23) Prior sleep studies: No CPAP Compliance Data - Data Reviewed with Patient Average duration of nightly device use: 5 HRS 59 MINS Compliance rate %: 82 (12/21/23-07/17/24; 197/210 days used) Current pressure setting (cmH2O): 8-11 Average residual AHI: 2.0 Central apnea: 0.1 Obstructive apnea: 1.8 Hypopnea: 0 Average large leak: 0.2 L/min Subjective Missed days of use due to: reports: other (NEW CHILD) Patient concerns: denies: aerophagia, mask discomfort, air blowing in eyes, mask leak noise, condensation in mask/hose, nasal congestion, dry mouth, nose, throat, epistaxis Observed to snore while using device: No Current pressure setting perceived as: comfortable On therapy, patient: reports: sleeping better, awakening more refreshed, being more awake and alert during the day, more rested overall. denies: drowsiness while driving Initial [place] Sleepiness Scale score: 12 (03/26/23) Current [place] Sleepiness Scale score: 11 Allergies and Home Medications Known drug allergies: No Drug allergies reviewed: Yes Home medication list reviewed: Yes (no changes) Allergy and home medication list: Allergies No Known Drug Allergies Allergy (Verified 07/20/24 10:01) Physical Exam Vital signs obtained and entered by: JOSH Good MA Blood Pressure: 151/96 (RIGHT ARM) Cuff size: long Heart Rate: 86 O2 Saturation: 98 Height: 5 ft 8 in Weight: 205 lb Weight change since last visit: 20 lb loss Body Mass Index: 31.1 BMI Classification: Obese Impression and Plan 1. Obstructive Sleep Apnea-Hypopnea Syndrome, moderate, with good treatment compliance and good apnea control. On CPAP therapy, the patient has better sleep quality and is more rested overall. He has a new in the last 5 months that causes interruptions to his sleep but overall he has been able to maintain good compliance. He has significant improvement of his sleep apnea and is satisfied with current CPAP therapy. Patient denies problems with oral dryness, nasal congestion, epistaxis, skin irritation or aerophagia. Patient's apnea severity and rationale for treatment to reduce apnea, improve sleep quality and reduce cardiovascular and cerebrovascular events was reviewed. Patient states he will be transferring from the area he thinks in about January as a permanent move. We discussed how to set up in his new area with a new sleep provider. He voiced understanding. 2. Obesity, unspecified. Currently patients BMI is 31.1. He has lost weight. Obesity increases the risk of apnea, CPAP pressure requirements and overall health risks especially cardiovascular and diabetes. Thus patient is advised to continue to try to lose weight. * Continue auto CPAP pressure at 8-11 cmH2O * Notify me if snoring with mask or feeling that the pressure is too much or too little * Continue to try to lose weight * Call this office if any problems using CPAP * Return for follow up in 12 months, or sooner if concerns arise Counseling Topics: Spare mask, Weight loss health impact Follow up with Sleep Care in: 1 year Visit Type: In Office Time Spent with Patient (minutes): 13 Provider Statement: I spent 100% of the Face to Face Visit with the patient with greater than 50% spent counseling the patient and coordination of care.
[2024-07-20 10:35] VITALS: BP 151/96; O2SAT 98
== END 2024-07-20 09:54 ==
LOC: SC 09:53
PROVIDERS: ATTEND Nurse Practitioner Family
DX: G47.33 Obstructive sleep apnea (adult) (pediatric) (principal); E66.9 Obesity, unspecified; Z68.31 Body mass index [BMI] 31.0-31.9, adult
CPT/HCPCS: 99212